=== PATIENT | female | born 1985 | race Caucasian/White ===

== ENCOUNTER 2017-10-21 20:18 | Emergency (ER) | payer MEDICAID ==
[2017-10-21] MEDS ORDERED: LIDOCAINE 4%/TETRACAINE 0.5%/EPI 0.18% 5 ML TOPICAL SOLN TOP ONE (20:57)
[2017-10-21] MEDS ORDERED: LIDOCAINE 1% INJ-PF (10 MG/ML) 30 ML SDV INJ ONE (20:58)
[2017-10-21] MEDS ORDERED: DIPH/PERTUSS(ACELL)/TETANUS VAC/PF 0.5 ML SYR (>=10YO) IM ONE (22:41)
[2017-10-21] MEDS ORDERED: CEPHALEXIN 500 MG CAPSULE PO ONE (23:09)
--- NOTE | 2017-10-21 23:12 | ER Document Report ---
Doctor's Note Notes: 10/21/17 23:11 Patient was initially seen by Kathy Bhatia, nurse practitioner. She has become to the patient asked patient has a laceration over the posterior aspect of her heel. It does go over the insertion site of the Achilles tendon to the back and calcaneus itself. She did show me a picture of the laceration for being sewn. Did not appear that the Achilles tendon is injured. I did reevaluate the patient. Laceration is now been sober and clean. Patient has no pain with palpation over Achilles tendon. She has no pain with dorsiflexion against resistance and has good strength in doing so. I do not suspect an Achilles tendon injury. Patient was placed on Keflex to help prevent infection. She is informed to not wears shoes that put pressure over the posterior aspect of the heel where the sutures are placed. She is encouraged to wear sandals and to keep the wound covered for the next several days. She is to return to ER if she has any redness or swelling. Patient agrees with plan will be discharged home. Dictation of this chart was performed using voice recognition software; therefore, there may be some unintended grammatical errors.
[2017-10-21] MEDS ORDERED: HYDROCODONE/ACETAMINOPHEN 5-325 MG (6 TAB/ER DISP) PO PRN (23:13)
--- NOTE | 2017-10-21 23:14 | ER Document Report ---
ED Extremity Problem, Lower - General Chief Complaint: Laceration Stated Complaint: LEFT FOOT INJURY Time Seen by Provider: 10/21/17 20:57 Mode of Arrival: Ambulatory Information source: Patient Notes: 32-year-old female presented to ED for complaint of injury to her left ankle just before arrival. She states he caught her foot and the outside door. She has a large laceration to her posterior left ankle. She is alert and oriented respirations regular and unlabored speaks with full sentences and is able to ambulate with pain. TRAVEL OUTSIDE OF THE [place] IN LAST 30 DAYS: No - HPI Patient complains to provider of: Injury, Pain Location: Ankle Occurred: Just prior to arrival Where: Home Onset/Duration: Sudden Quality of pain: Sharp, Throbbing Severity: Moderate Pain Level: 3 Context: Laceration Recent injury: Yes Associated symptoms: Painful ambulation Exacerbated by: Hanging down, Movement, Walking Relieved by: Elevation - Related Data Allergies/Adverse Reactions: No Known Allergies Allergy (Unverified 10/21/17 20:25) Past Medical History - General Information source: Patient - Social History Smoking Status: Current Every Day Smoker Cigarette use (# per day): Yes Chew tobacco use (# tins/day): No Smoking Education Provided: Yes - 4 minutes Frequency of alcohol use: Occasional Drug Abuse: Marijuana Occupation: Housecleaning Family History: Reviewed & Not Pertinent Patient has suicidal ideation: No Patient has homicidal ideation: No - Past Medical History Cardiac Medical History: Reports: None Pulmonary Medical History: Reports: None EENT Medical History: Reports: None Neurological Medical History: Reports: None Endocrine Medical History: Reports: None Renal/ Medical History: Reports: None Malignancy Medical History: Reports: None GI Medical History: Reports: None Musculoskeletal Medical History: Reports None Skin Medical History: Reports None Psychiatric Medical History: Reports: None Traumatic Medical History: Reports: None Infectious Medical History: Reports: None Past Surgical History: Reports: Hx Adenoidectomy, Hx Tonsillectomy - Immunizations Immunizations up to date: Yes Hx Diphtheria, Pertussis, Tetanus Vaccination: Yes - 10/21/2017 Review of Systems - Review of Systems Constitutional: No symptoms reported EENT: No symptoms reported Cardiovascular: No symptoms reported Respiratory: No symptoms reported Gastrointestinal: No symptoms reported Genitourinary: No symptoms reported Female Genitourinary: No symptoms reported Musculoskeletal: No symptoms reported Skin: Other - Laceration to the left heel Hematologic/Lymphatic: No symptoms reported Neurological/Psychological: No symptoms reported Physical Exam - Vital signs Vitals: Temp Pulse Resp BP Pulse Ox 98.8 F 78 20 121/68 99 10/21/17 20:24 10/21/17 20:24 10/21/17 20:24 10/21/17 20:24 10/21/17 20:24 Interpretation: Normal - General General appearance: Appears well, Alert - HEENT Head: Normocephalic, Atraumatic Eyes: Normal Pupils: PERRL - Respiratory Respiratory status: No respiratory distress Chest status: Nontender Breath sounds: Normal Chest palpation: Normal - Cardiovascular Rhythm: Regular Heart sounds: Normal auscultation Murmur: No - Abdominal Inspection: Normal Distension: No distension Bowel sounds: Normal Tenderness: Nontender Organomegaly: No organomegaly - Back Back: Normal, Nontender - Extremities General upper extremity: Normal inspection, Nontender, Normal color, Normal ROM , Normal temperature General lower extremity: Normal color, Normal temperature, Normal weight bearing. No: Jonah's sign Ankle: Tender, Laceration, Limited ROM - Due to pain. No: Unable to bear weight - Pain with ambulation Foot: Tender, No evidence of FB. No: Ecchymosis - Neurological Neuro grossly intact: Yes Cognition: Normal Orientation: AAOx4 Franck Coma Scale Eye Opening: Spontaneous Franck Coma Scale Verbal: Oriented Howe Coma Scale Motor: Obeys Commands Howe Coma Scale Total: 15 Speech: Normal Motor strength normal: LUE, RUE, LLE, RLE Sensory: Normal - Psychological Associated symptoms: Normal affect, Normal mood - Skin Skin Temperature: Warm Skin Moisture: Dry Skin Color: Normal Skin irregularity: Laceration - 8 cm laceration flap to the left posterior ankle Location of irregularity: Extremities - Left ankle Irregularity with: Tenderness Course - Re-evaluation Re-evalutation: 10/21/17 23:20 After suturing the laceration I consulted Dr. Del Valle with a picture of the original injury. He stated that as long as she did not wear boots it would be okay not to splint the ankle. Patient has been placed on Keflex for prophylactic antibiotics. She has been given instructions on cleaning and dressing the wound and need to elevate the injury. She has been instructed to follow-up with orthopedics. She has been given crutches and given instructions on use and instructions to not bear weight on this foot for 4 days. Patient was able to verbalize understanding and agreement with treatment plan. - Vital Signs Vital signs: Temp Pulse Resp BP Pulse Ox 98.5 F 64 16 104/67 98 10/21/17 23:59 10/21/17 23:59 10/21/17 23:59 10/21/17 23:59 10/21/17 23:59 Procedures - Immobilization Left Ankle Time completed: 23:20 Pre-Proc Neuro Vasc Exam: Normal Immobilizer type: Crutches Performed by: RN Post-Proc Neuro Vasc Exam: Normal Alignment checked and good: No - no fracture - Laceration/Wound Repair Left Ankle Time completed: 11:10 Wound length (cm): 8 Wound's Depth, Shape: Irregular, Flap Laceration pre-procedure: Sterile PPE donned, Sterile drapes applied, Shur- Clens applied Anesthetic type: 1% Lidocaine Volume Anesthetic (mLs): 12 Wound explored: No foreign body removed, Contaminated Irrigated w/ Saline (mLs): 500 Wound Repaired With: Sutures Suture Size/Type: 4:0, Ethilon Number of Sutures: 11 Layer Closure?: No Post-procedure wound care: Sterile dressing applied, Other - crutches Post-procedure NV exam normal: Yes Complications: No Discharge - Discharge Clinical Impression: Laceration of left ankle Qualifiers: Encounter type: initial encounter Qualified Code(s): S91.012A - Laceration without foreign body, left ankle, initial encounter Condition: Stable Disposition: HOME, SELF-CARE Additional Instructions: LACERATION CARE: Your laceration has been sutured to keep the skin edges aligned during healing. The time of suture removal depends on the nature and location of your cut. Please follow the care instructions the doctor has outlined for you and return for further care, according to the schedule you've been given. Keep the wound and dressing clean. Unless you were told otherwise, you may shower daily, blotting the wound dry with a clean, unused towel. At other times, If the dressing gets wet or blood soaked, remove it and blot the wound dry, then reapply a new dressing. Unless you were instructed otherwise, dressings should be changed at least daily. If any signs of infection occur (swelling, redness, drainage, increasing tenderness, red streaks, tender lumps in the armpit or groin above the laceration, or fever), see the doctor immediately. SOAP CLEANSING: Gently wash the wound daily using a mild soap (like Ivory, Phisoderm, Neutrogena). Use warm water, rubbing gently until all debris, ooze, and crusting have been washed from the wound. Allow to dry briefly (about 10 minutes) after cleaning. Repeat this cleansing at least three times a day for the first two days and then once or twice a day. ANTIBIOTIC OINTMENT PROTECTION: Your wounds are such that dressing them is not practical or optional. After cleansing, you should apply a thin coating of antibiotic ointment ( Bacitracin, not Neosporin) to the wounds at least three times daily. This lessens infection risk, and may decrease the amount of scarring. Use a q-tip or dull butter knife, not your finger, to apply this ointment. Any debris or ooze which builds up in the ointment should be gently rubbed off with a sterile gauze pad. Harder crusting may need to be gently scrubbed off with a clean wash cloth with soap and warm water, perhaps applying a warm, wet wash cloth to the wound for ten minutes first. Development of redness, severe itching, or blistering may mean allergy to the ointment. See the doctor. TETANUS IMMUNIZATION GIVEN: You have been given an immunization against tetanus. Please record this in your records. In general, a booster is needed only once every 10 years. The tetanus shot protects against tetanus or "lockjaw," which is a complication of certain wound infections (the tetanus shot cannot protect against the actual infection). The immunization site may become warm and red due to local reaction. If this occurs, apply warm compresses and take aspirin or ibuprofen to reduce inflammation and discomfort. Return for evaluation if the reaction becomes severe. PROPHYLACTIC ANTIBIOTIC: The antibiotics which have been prescribed are designed to decrease the risk of infection. Only certain types of wounds benefit from this -- the typical cut, scrape, or burn DOES NOT require antibiotics. Of course, infection can still occur despite the use of prophylactic antibiotics. Your wound will heal with less chance of an infectious complication if you take the medication as directed. The most important dose is the FIRST dose, so don't delay filling the prescription! ORAL NARCOTIC MEDICATION: You have been given a prescription for pain control. This medication is a narcotic. It's best taken with food, as nausea can result if taken on an empty stomach. Don't operate machinery or drive within six hours of taking this medication. Do not combine this medicine with alcohol, or with any medication which can cause sedation (such as cold tablets or sleeping pills) unless you get permission from the physician. Narcotics tend to cause constipation. If possible, drink plenty of fluids and eat a diet high in fiber and fruits. USE OF CRUTCHES: The doctor has recommended that you not bear weight at this time. You will need to use crutches. Adjust the crutches so the tops come to about two inches under the armpit while you are standing upright. Use your hands -- not your armpits -- to support your weight. To get into a chair, support yourself with one crutch on the injured side. Hold the chair with the other hand, then lower yourself while putting all your weight on the good leg. Going up stairs is `good leg up, step up, then bring up crutches and bad leg.' Down stairs is `bad leg and crutches down, then bring good leg down.' If you develop numbness or swelling in an arm or hand, you are using the crutches incorrectly. Return if you are having any problems with the crutches. Elevate the Injury Because of the nature of your injury, elevation will be helpful to reduce swelling. This also reduces infection risk in wounds. Keep the injury up above the level of your heart for at least the next 48 hours (or longer if the physician recommends it). FOLLOW-UP CARE: Please return in ___3__ days for an infection check and dressing change. Your sutures should be removed in ___10__ days. To facilitate a timely removal of your sutures, you may return to the Emergency Department at [facility]. You do not need to call for an appointment, but the best time to come in for suture removal is early in the morning. If you have been referred to another physician for follow-up care, call that physicians office for an appointment as you were instructed. If you experience a significant change in your laceration, or if you are concerned there may be an infection (swelling, redness, drainage, increasing tenderness, red streaks, tender lumps in the armpit or groin above the laceration, or fever) , return to the Emergency Department immediately re-evaluation. Prescriptions: Cephalexin Monohydrate [Keflex 500 mg Capsule] 500 mg PO QID #20 capsule Referrals: JEANMARIE JONES MD [Primary Care Provider] - 10/24/17 ATIF AC MD [ACTIVE STAFF] - Follow up as needed
[2017-10-22 00:01] VITALS: BP 104/67
== END 2017-10-21 23:59 | disposition home or self-care (01) ==
LOC: ER 20:18
PROC: 0HQNXZZ Repair Left Foot Skin, External Approach (ICD-10-PCS; principal; 2017-10-21)
DX: S91.012A Laceration without foreign body, left ankle, initial encounter (principal); X58.XXXA Exposure to other specified factors, initial encounter; Y92.009 Unspecified place in unspecified non-institutional (private) residence as the place of occurrence of the external cause; F17.210 Nicotine dependence, cigarettes, uncomplicated; Z23 Encounter for immunization
CPT/HCPCS: 99406; 99283; 90471; 90715; 12004; J3490 ×2

== ENCOUNTER 2017-10-24 22:31 | Emergency (ER) | payer MEDICAID ==
[2017-10-24 22:52] VITALS: BP 124/62
--- NOTE | 2017-10-25 00:13 | ER Document Report ---
HPI - HPI Patient complains to provider of: wound recheck Onset: Other - sunday Onset/Duration: Sudden, Better Quality of pain: Achy Severity: Mild Pain Level: 1 Associated Symptoms: None Exacerbated by: Standing, Movement, Walking Relieved by: Sitting Similar symptoms previously: Yes Recently seen / treated by doctor: Yes - ROS ROS below otherwise negative: Yes - CONSTITUTIONAL Constitutional: DENIES: Fever, Chills - EENT EENT: DENIES: Sore Throat, Ear Pain, Nasal Drainage-Clear, Nasal Drainage- Purulent, Congestion, Eye problems - NEURO Neurology: DENIES: Headache, Weakness, Vision blurred, Dizzinesss / Vertigo - CARDIOVASCULAR Cardiovascular: DENIES: Chest pain - GASTROINTESTINAL Gastrointestinal: DENIES: Abdominal Pain, Nausea, Patient vomiting, Diarrhea, Constipation, Black / Bloody Stools - URINARY Urinary: DENIES: Dysuria, Urgency, Frequency - REPRODUCTIVE Reproductive: DENIES: :, Postmenopausal, Abnormal bleeding / discharge - MUSCULOSKELETAL Musculoskeletal: REPORTS: Extremity pain, Swelling. DENIES: Back Pain, Neck Pain - DERM Skin Color: Normal Skin Problems: Laceration - Starting to heal to the left ankle. Sutures inserted on 10/21/2017 Past Medical History - General Information source: Patient - Social History Smoking Status: Current Every Day Smoker Cigarette use (# per day): Yes Chew tobacco use (# tins/day): No Smoking Education Provided: Yes - 4 minutes Frequency of alcohol use: Occasional Drug Abuse: Marijuana Occupation: [employer] Family History: Reviewed & Not Pertinent Patient has suicidal ideation: No Patient has homicidal ideation: No - Past Medical History Cardiac Medical History: Reports: None Pulmonary Medical History: Reports: None EENT Medical History: Reports: None Neurological Medical History: Reports: None Endocrine Medical History: Reports: None Renal/ Medical History: Reports: None Malignancy Medical History: Reports: None GI Medical History: Reports: None Musculoskeletal Medical History: Reports None Skin Medical History: Reports None Psychiatric Medical History: Reports: None Traumatic Medical History: Reports: None Past Surgical History: Reports: Hx Adenoidectomy, Hx Tonsillectomy - Immunizations Immunizations up to date: Yes Hx Diphtheria, Pertussis, Tetanus Vaccination: Yes - 10/21/2017 Vertical Provider Document - CONSTITUTIONAL Agree With Documented VS: Yes Exam Limitations: No Limitations General Appearance: WD/WN, No Apparent Distress - INFECTION CONTROL TRAVEL OUTSIDE OF THE [place] IN LAST 30 DAYS: No - HEENT HEENT: Atraumatic, Normal ENT Exam, Normocephalic, PERRLA - NECK Neck: Normal Inspection, Supple - RESPIRATORY Respiratory: Breath Sounds Normal, No Respiratory Distress, Chest Non-Tender - MUSCULOSKELETAL/EXTREMETIES Musculoskeletal/Extremeties: MAEW, FROM, Tender, Edema - Minimal swelling to the area where the sutures are, Eccymosis - Ankle left - NEURO Level of Consciousness: Awake, Alert, Appropriate Motor/Sensory: No Motor Deficit, No Sensory Deficit, No Pronator Drift Deep Tendon Reflexes: 2+ - DERM Integumentary: Laceration - Starting to heal Course - Re-evaluation Re-evalutation: 10/25/17 01:36 Patient is here looked much better than it did on Sunday. There is no signs or symptoms of infection. There is minimal swelling and bruising to the ankle. There is no drainage. Patient was encouraged to continue changing the dressing as instructed and that she can leave the dressing off as long as she is inside and now walking outside starting Sunday. Patient verbalized understanding of instructions and agreement with treatment plan. Testing was changed while in the ED. - Vital Signs Vital signs: Temp Pulse Resp BP Pulse Ox 98.3 F 80 18 124/62 98 10/24/17 22:49 10/24/17 22:49 10/24/17 22:49 10/24/17 22:49 10/24/17 22:49 Discharge - Discharge Clinical Impression: Encounter for wound re-check Condition: Stable Disposition: HOME, SELF-CARE Additional Instructions: You were seen today for recheck of your laceration to your heel. Your wound is healing appropriately. Please continue your antibiotics as prescribed. You are doing a good job of cleaning the wound as instructed please continue to clean the wound as you are. Please continue with the antibiotic ointment to the wound. Elevate the Injury Because of the nature of your injury, elevation will be helpful to reduce swelling. This also reduces infection risk in wounds. Keep the injury up above the level of your heart for at least the next 48 hours (or longer if the physician recommends it). SOAP CLEANSING: Gently wash the wound daily using a mild soap (like Ivory, Phisoderm, Neutrogena). Use warm water, rubbing gently until all debris, ooze, and crusting have been washed from the wound. Allow to dry briefly (about 10 minutes) after cleaning. Repeat this cleansing at least three times a day for the first two days and then once or twice a day. ANTIBIOTIC OINTMENT PROTECTION: Your wounds are such that dressing them is not practical or optional. After cleansing, you should apply a thin coating of antibiotic ointment ( Bacitracin, not Neosporin) to the wounds at least three times daily. This lessens infection risk, and may decrease the amount of scarring. Use a q-tip or dull butter knife, not your finger, to apply this ointment. Any debris or ooze which builds up in the ointment should be gently rubbed off with a sterile gauze pad. Harder crusting may need to be gently scrubbed off with a clean wash cloth with soap and warm water, perhaps applying a warm, wet wash cloth to the wound for ten minutes first. Development of redness, severe itching, or blistering may mean allergy to the ointment. See the doctor. FOLLOW-UP CARE: If you have been referred to a physician for follow-up care, call the physician s office for an appointment as you were instructed or within the next two days. If you experience worsening or a significant change in your symptoms, notify the physician immediately or return to the Emergency Department at any time for re-evaluation. Referrals: JEANMARIE JONES MD [Primary Care Provider] - Follow up as needed
== END 2017-10-25 00:29 | disposition home or self-care (01) ==
LOC: ER 22:31
DX: S91.021 Laceration with foreign body, right ankle (principal); X58.XXXD Exposure to other specified factors, subsequent encounter; F17.210 Nicotine dependence, cigarettes, uncomplicated
CPT/HCPCS: 99281